=== PATIENT | male | born 1945 | race Two or more races ===

== ENCOUNTER 2024-02-09 10:00 | Emergency (ER) | payer MEDICARE, SELFPAY ==
[2024-02-09 10:13] VITALS: BP 200/90; PULSE 71; TEMP 36.7; O2SAT 99; BMI 28.3
--- NOTE | 2024-02-09 10:19 | ED_ITS ---
HPI - Abdominal Pain General Chief Complaint: Abdominal Pain Stated Complaint: ABDOMINAL PAIN Time Seen by Provider: 02/09/24 10:16 Source: patient Mode of arrival: walk-in Limitations: no limitations History of Present Illness HPI narrative: 78-year-old male presents to the emergency department for abdominal pain and diarrhea which started last night. No blood in his stool but he states it is watery. He is nauseous but has not been vomiting. No recent hospitalizations or antibiotic use. The pain is moderate and only on the right side. Related Data Previous Rx's ?Medication ?Instructions ?Recorded ondansetron 4 mg disintegrating 4 mg PO Q6H PRN nausea and 02/09/24 tablet vomiting #20 tabs Allergies Allergy/AdvReac Type Severity Reaction Status Date / Time iodine Allergy Intermediate Hives Verified 02/09/24 10:13 Review of Systems ROS Narrative A ten point review of systems is negative except as noted above. Exam Narrative Exam Narrative: Nurses note and vital signs reviewed and patient is not hypoxic. General: The patient appears in no apparent distress. Patient is resting comfortably on cart. Skin: Warm, dry, no pallor noted. There is no rash noted. Head: Normocephalic, atraumatic Eye: Normal conjunctiva, no drainage Ears, Nose, Mouth, and Throat: oral mucosa is moist. Nares patent. Cardiovascular: Regular Rate and Rhythm Respiratory: Patient is in no distress, no accessory muscle use, lungs are clear to auscultation, no wheezing, rales or rhonchi Back: non-tender GI: Soft and nondistended. Tenderness present only on the right side without mass Musculoskeletal: The patient has no evidence of calf tenderness, no pitting edema, symmetrical pulses noted bilaterally Neurological: Awake and alert Psychiatric: Cooperative Constitutional Vital Signs, click to edit/add: Last Vital Signs Temp 98.1 F 02/09/24 10:13 Pulse 67 02/09/24 11:43 Resp 16 02/09/24 11:43 BP 164/74 H 02/09/24 11:43 Pulse Ox 98 02/09/24 11:43 O2 Del Method Room Air 02/09/24 11:43 Course Vital Signs Vital signs: Vital Signs Temperature 98.1 F 02/09/24 10:13 Pulse Rate 71 02/09/24 10:13 Respiratory Rate 16 02/09/24 10:13 Blood Pressure 200/90 H 02/09/24 10:13 Pulse Oximetry 99 02/09/24 10:13 Oxygen Delivery Method Room Air 02/09/24 10:13 Temperature 98.1 F 02/09/24 10:13 Pulse Rate 67 02/09/24 11:43 Respiratory Rate 16 02/09/24 11:43 Blood Pressure 164/74 H 02/09/24 11:43 Pulse Oximetry 98 02/09/24 11:43 Oxygen Delivery Method Room Air 02/09/24 11:43 MDM - Abdominal Pain MDM Narrative Medical decision making narrative: Blood work is essentially normal and he is feeling improved and is able to be discharged home. I suspect that he may have food poisoning because his and he both got sick at the same time last night. Treatment diagnosis and follow-up were discussed with the patient. Differential Diagnosis Differential diagnosis: Likely abdominal pain, diverticulitis and gastroenteritis Lab Data Attestation: I reviewed the patient's lab results. Labs: Lab Results 02/09/24 Range/Units 10:30 WBC 5.0 (4.0-11.0) 10^3/uL RBC 3.83 L (4.70-6.10) 10^6/uL Hgb 12.2 L (14.0-18.0) g/dL Hct 36.2 L (42.0-54.0) % MCV 94.5 H (80.0-94.0) fL MCH 31.9 (25.9-34.0) pg MCHC 33.7 (29.9-35.2) g/dL RDW 15.2 H (11.0-15.0) % Plt Count 77 L (150-450) 10^3/uL MPV 10.2 (9.5-13.5) fL Neut % (Auto) 70.3 (43.0-75.0) % Lymph % (Auto) 18.1 L (20.5-60.0) % [place] % (Auto) 8.8 (1.7-12.0) % Eos % (Auto) 1.2 (0.9-7.0) % Baso % (Auto) 0.8 (0.2-2.0) % Neut # (Auto) 3.5 (1.4-6.5) 10^3/uL Lymph # (Auto) 0.9 L (1.2-3.8) 10^3/uL [place] # (Auto) 0.4 (0.3-0.8) 10^3/uL Eos # (Auto) 0.1 (0.0-0.7) 10^3/uL Baso # (Auto) 0.0 (0.0-0.1) 10^3/uL Abs Immat Gran (auto) 0.04 H (0.00-0.03) 10^3/uL Imm/Tot Granulo (auto) 0.8 H (0.0-0.5) % Sodium 135 L (136-145) mmol/L Potassium 4.6 (3.5-5.1) mmol/L Chloride 104 (98-107) mmol/L Carbon Dioxide 20.6 L (21.0-32.0) mmol/L Anion Gap 15.0 BUN 23.0 H (7.0-18.0) mg/dL Creatinine 1.17 (0.70-1.30) mg/dL Est GFR ( Amer) >60 (>=60) Est GFR (Non-Af Amer) 60 (>=60) BUN/Creatinine Ratio 19.7 Glucose 271 H (74-106) mg/dL Calcium 9.1 (8.5-10.1) mg/dL Total Bilirubin 3.0 H (0.2-1.0) mg/dL Direct Bilirubin 0.5 H (0.0-0.2) mg/dL AST 69 H (15-37) U/L ALT 50 (16-63) U/L Alkaline Phosphatase 210 H (46-116) U/L Total Protein 8.4 H (6.4-8.2) g/dL Albumin 3.6 (3.4-5.0) g/dL Globulin 4.8 g/dL Albumin/Globulin Ratio 0.8 Amylase 33 (25-115) U/L Lipase 34.0 (16.0-77.0) U/L Discharge Plan Discharge Stand Alone Forms: Portal Instructions Chief Complaint: Abdominal Pain Clinical Impression: Abdominal pain, Food poisoning Patient Disposition: Home, Self-Care Time of Disposition Decision: 12:39 Condition: Good Mode of Transportation: Private Vehicle Prescriptions / Home Meds: New ondansetron 4 mg tablet,disintegrating 4 mg PO Q6H PRN (Reason: nausea and vomiting) Qty: 20 0RF Print Language: Lao Instructions: Food Poisoning (ED), Abdominal Pain (ED) Referrals: JAMES LAIRD [Primary Care Provider] - 1 week
[2024-02-09] MEDS: 0.9 % SODIUM CHLORIDE 1,000 ML 125 ML IV (10:33)
[2024-02-09] MEDS: ONDANSETRON PF 4 MG/2 ML VIAL IV (10:34)
[2024-02-09 10:45] LABS: Basophils Percent Auto 0.8 % (0.2-2.0); Eosinophils Absolute Auto 0.1 10^3/uL (0.0-0.7); Eosinophils Percent Auto 1.2 % (0.9-7.0); Hematocrit 36.2 % (42.0-54.0); Hemoglobin 12.2 g/dL (14.0-18.0); Immature Granulocytes Abs Auto 0.04 10^3/uL (0.00-0.03); Immature Granulocytes Pct Auto 0.8 % (0.0-0.5); Lymphocytes Absolute Auto 0.9 10^3/uL (1.2-3.8); Lymphocytes Percent Auto 18.1 % (20.5-60.0); Mean Corpuscular HGB Conc 33.7 g/dL (29.9-35.2); Mean Corpuscular Hemoglobin 31.9 pg (25.9-34.0); Mean Corpuscular Volume 94.5 fL (80.0-94.0); Mean Platelet Volume 10.2 fL (9.5-13.5); Monocytes Absolute Auto 0.4 10^3/uL (0.3-0.8); Monocytes Percent Auto 8.8 % (1.7-12.0); Neutrophils Absolute Auto 3.5 10^3/uL (1.4-6.5); Neutrophils Percent Auto 70.3 % (43.0-75.0); Platelet Count 77 10^3/uL (150-450); Red Blood Count 3.83 10^6/uL (4.70-6.10); Red Cell Distribution Width 15.2 % (11.0-15.0)
[2024-02-09 10:55] LABS: BUN Creatinine Ratio 19.7; Calcium 9.1 mg/dL (8.5-10.1); Carbon Dioxide 20.6 mmol/L (21.0-32.0); Chloride 104 mmol/L (98-107); Estimated GFR (African America >60 (>=60); Estimated GFR (Non-African Ame 60 (>=60); Glucose 271 mg/dL (74-106); Potassium 4.6 mmol/L (3.5-5.1); Sodium 135 mmol/L (136-145)
[2024-02-09 11:05] LABS: Alanine Aminotransferase 50 U/L (16-63); Albumin Globulin Ratio 0.8; Albumin Level 3.6 g/dL (3.4-5.0); Alkaline Phosphatase 210 U/L (46-116); Amylase 33 U/L (25-115); Aspartate Amino Transferase 69 U/L (15-37); Bilirubin Direct 0.5 mg/dL (0.0-0.2); Globulin 4.8 g/dL; Total Protein 8.4 g/dL (6.4-8.2)
[2024-02-09 11:43] VITALS: BP 164/74; PULSE 67; O2SAT 98
[2024-02-09] MEDS: KETOROLAC TROMETHAMINE 30 MG/ML VIAL IVP (12:19)
[2024-02-09] MEDS: DICYCLOMINE HCL 20 MG/2 ML VIAL IM (12:19)
[2024-02-09 12:50] VITALS: BP 139/77; PULSE 66; O2SAT 98
[2024-02-09 15:41] LABS: C. Difficile PCR NEGATIVE (NEGATIVE)
== END 2024-02-09 13:03 | disposition home or self-care (01) ==
PROVIDERS: Emergency Provider Emergency Medicine; PCP Internal Medicine
DX: R10.9 Unspecified abdominal pain (principal); A05.9 Bacterial foodborne intoxication, unspecified
CPT/HCPCS: 36415; 80048; 80076; 82150; 83690; 85025; 87045; 87046; 87427; 87493; 96361; 96372; 96374; 96375; 99284; J0500; J1885; J2405